=== PATIENT | male | born 1940 ===

== ENCOUNTER 2016-10-15 10:44 | Day surgery (SDC) | payer MEDICAID ==
[2016-10-15] MEDS ORDERED: Lactated Ringer's 500 ML IV ONE (10:57)
[2016-10-15] MEDS ORDERED: Propofol 10 mg/ml Inj (20 ML) ONE (13:21)
[2016-10-15 14:06] VITALS: TEMP 97
[2016-10-15 14:15] VITALS: BP 105/71; PULSE 72; RESP 22; O2SAT 97
== END 2016-10-15 14:22 | disposition home or self-care (01) ==
LOC: H.ENDO 10:44
PROVIDERS: ATTEND Internal Medicine Gastroenterology
DX: R10.13 Epigastric pain (principal); R12 Heartburn; K22.8 Other specified diseases of esophagus; K31.9 Disease of stomach and duodenum, unspecified; Z85.048 Personal history of other malignant neoplasm of rectum, rectosigmoid junction, and anus

== ENCOUNTER 2016-10-29 09:59 | Day surgery (SDC) | payer MEDICAID ==
[2016-10-29] MEDS ORDERED: Lactated Ringer's 500 ML IV ONE (10:19)
[2016-10-29] MEDS ORDERED: Propofol 10 mg/ml Inj (20 ML) ONE (11:01)
[2016-10-29 11:32] VITALS: TEMP 97
[2016-10-29 11:56] VITALS: BP 103/63; PULSE 68; RESP 16; O2SAT 99
== END 2016-10-29 12:04 | disposition home or self-care (01) ==
LOC: H.ENDO 09:59
PROVIDERS: ATTEND Internal Medicine Gastroenterology
DX: Z85.048 Personal history of other malignant neoplasm of rectum, rectosigmoid junction, and anus (principal); K57.30 Diverticulosis of large intestine without perforation or abscess without bleeding